=== PATIENT | female | born 1970 | race Hispanic/Latino ===

== ENCOUNTER 2018-03-15 05:47 | Day surgery (SDC) | payer BC ==
[2018-03-14 15:18] VITALS: BMI 39.9
[~2018-03-15 05:47] MED LIST: Cyclopentolate 1% Opth Drop 2 ML BOT FS SCH; EPINEPHrine 0.3 MG in Ophthalmic Irrigation Solution 500 ML FS SCH; Phenylephrine 2.5% Ophth Soln 5 ML BOT FS SCH
[2018-03-15] MEDS ORDERED: Phenylephrine 2.5% Ophth Soln 5 ML BOT ONE (06:01)
[2018-03-15] MEDS ORDERED: Cyclopentolate 1% Opth Drop 2 ML BOT ONE (06:01)
[2018-03-15] MEDS ORDERED: Fentanyl 100 MCG/2 ML VIAL ONE (06:12)
[2018-03-15] MEDS ORDERED: Lidocaine 2% 10 ML INJ ONE (06:12)
[2018-03-15] MEDS ORDERED: Midazolam HCl 2 mg/2 ml Vial ONE (06:12)
[2018-03-15] MEDS ORDERED: PROPOFOL 20 ML ONE (06:12)
--- NOTE | 2018-03-15 09:14 | OP ---
DATE OF PROCEDURE: 03/15/2018 PREOPERATIVE DIAGNOSIS: Retained lens fragments epiretinal membrane, left eye. POSTOPERATIVE DIAGNOSIS: Retained lens fragments epiretinal membrane, left eye. PROCEDURE: Pars plana vitrectomy and membrane peel, left eye. SURGEON: Dr. Mario Alberto Coleman ANESTHESIA: Local with monitored anesthesia care. PROCEDURE IN DETAIL: The patient was identified in the preoperative holding area. Appropriate infor med consent for the planned surgical procedure on the left eye had been obtained. The patient was tr ansported to the operative suite. Appropriate cardiopulmonary monitoring established. Local anesthe sam was obtained using retrobulbar and modified Van Lint lid block using 50:50 mixture of 4% lidocain e and 0.75% bupivacaine. The patient was prepped and draped in the usual sterile manner for ophthalm ic surgery on the left eye. Lid speculum was placed in the left eye. The 25-gauge trocars were plac ed in conjunctiva and sclera supratemporally, inferotemporally, and supranasally. Infusion line was placed inferotemporally. Light pipe and vitreous cutter were inserted into the eye. Core vitrectomy was performed. Retained lens fragments were removed from the eye. Posterior hyaloid face was eleva jing using vacuum suction and peeled into the retinal periphery, 360 laser was placed using endolaser delivery device anterior to the equator. Residual debris was removed from the lens capsule. Lens wa s noted to be stable and centered. Trocars were removed and sclerotomy was sutured closed. Retrobul bar Kenalog and subconjunctival Ancef were placed. Atropine and antibiotic ointment were placed, and the eye was patched and shielded. The patient was taken the postoperative recovery unit in good con dition having suffered no immediate perioperative complications. DISCHARGE INSTRUCTIONS: The patient was instructed to keep patch and shield on, avoid lifting or melly ding, and follow up in the morning with Dr. Coleman.
[2018-03-15] MEDS ORDERED: Lidocaine 1% PF 5 ML VIAL ONE (13:02)
[2018-03-15] MEDS ORDERED: PROPOFOL 200 MG/20 ML VIAL ONE (13:02)
== END 2018-03-15 08:35 | disposition home or self-care (01) ==
LOC: SDC 05:47
PROVIDERS: ATTEND Ophthalmology Retina Specialist
PROC: 08NF3ZZ Release Left Retina, Percutaneous Approach (ICD-10-PCS; principal; 2018-03-15)
PROC: 08T53ZZ Resection of Left Vitreous, Percutaneous Approach (ICD-10-PCS; principal; 2018-03-15)
DX: H59.022 Cataract (lens) fragments in eye following cataract surgery, left eye (principal); Z79.899 Other long term (current) drug therapy; Z79.4 Long term (current) use of insulin
CPT/HCPCS: 36416; J0171; J2250; J2704; J3010

== ENCOUNTER 2018-04-20 02:55 | Emergency (ER) | payer BC ==
[2018-04-20] MEDS ORDERED: Fentanyl 100 MCG/2 ML VIAL ONE (03:26)
[2018-04-20 03:39] LABS: #Basophils 0.1 thou/uL (0.0-0.2); #Eosinphils 0.2 thou/uL (0.0-0.7); #Lymphocytes 3.1 thou/uL (1.20-3.40); #Monocytes 0.8 thou/uL (0.11-0.59); %Basophils 0.7 % (0.0-1.0); %Eosinophils 1.6 % (0.0-10.0); %Lymphocytes 25.3 % (21.0-51.0); %Monocytes 6.8 % (0.0-10.0); %Neutrophils 65.6 % (42.0-75.0); Hemoglobin 12.9 g/dL (12.0-16.0); Mean Corpuscular HGB CONC 34.1 g/dL (32.0-36.0); Mean Corpuscular Hemoglobin 29.7 pg (27.0-31.0); Mean Corpuscular Volume 87.1 fL (78.0-98.0); Mean Platelet Volume 10.3 fL (7.4-10.4); Platelet Count 202 thou/uL (130-400); RBC Distribution Width 12.1 % (11.5-14.5); Red Blood Cell (RBC) Count 4.33 mill/uL (4.20-5.40); White Blood Cell (WBC) Count 12.2 thou/uL (4.8-10.8)
[2018-04-20 03:55] LABS: ALT (SGPT) 19 U/L (8-55); AST (SGOT) 16 U/L (5-34); Albumin 3.5 g/dL (3.5-5.0); Alkaline Phosphatase 60 U/L (40-150); Anion Gap 13 mmol/L (10-20); BUN (Urea Nitrogen) 26 mg/dL (7.0-18.7); Bilirubin, Total 0.3 mg/dL (0.2-1.2); Calc. Creatinine Clearance 0 mL/min (70-130); Calcium 9.4 mg/dL (7.8-10.44); Carbon Dioxide 23 mmol/L (22-29); Chloride 108 mmol/L (98-107); Estimated GFR-MDRD 78; Globulin 3.5 g/dL (2.4-3.5); Glucose 81 mg/dL (70-105); Potassium 3.8 mmol/L (3.5-5.1); Sodium 140 mmol/L (136-145)
[2018-04-20] MEDS ORDERED: diphenhydrAMINE 50 MG/ML VIAL ONE (04:17)
[2018-04-20] MEDS ORDERED: Promethazine HCl 25 MG/ML VIAL ONE (04:17)
[2018-04-20] MEDS ORDERED: Labetalol HCl 100 MG/20 ML VIAL ONE (04:56)
--- NOTE | 2018-04-20 08:26 | CT ---
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 TECHNIQUE: Axial computed tomography images of the head/brain without intravenous contrast. COMPARISON: No relevant prior studies available. FINDINGS: No definite acute skull fracture. Included paranasal sinuses are essentially clear. No acute intracranial hemorrhage or mass effect. Ventricle size is normal for age. No definite acute infarct by CT. IMPRESSION: No acute intracranial bleed or mass effect. Thank you for allowing us to participate in the care of your patient. Dictated and Authenticated by: Nico Franklin MD 04/20/2018 4:54 AM Central Time ([place] & [place]) FINAL REPORT BRAIN CT WITHOUT IV CONTRAST: EMERGENCY AFTER HOURS EXAM TIME: 3:45 a.m. DATE: 04/20/18. FINDINGS: No significant acute intracranial process. No mass or bleed. POS: OFF
--- NOTE | 2018-04-21 13:17 | EKG ---
Test Reason : HEADACHE Blood Pressure : / mmHG Vent. Rate : 078 BPM Atrial Rate : 078 BPM P-R Int : 210 ms QRS Dur : 090 ms QT Int : 372 ms P-R-T Axes : 018 032 016 degrees QTc Int : 424 ms Sinus rhythm with 1st degree A-V block Possible Left atrial enlargement Septal infarct , age undetermined Abnormal ECG Confirmed by MERCEDES CHINCHILLA, BIANKA ([id number]), avid editor SANDIP MANSFIELD ([id number]) on 04/21/2018 1:17:22 PM Referred By: Confirmed By:BIANKA LONG MD
== END 2018-04-20 06:40 | disposition home or self-care (01) ==
LOC: ERS 02:55
DX: G44.209 Tension-type headache, unspecified, not intractable (principal); I10 Essential (primary) hypertension; E78.5 Hyperlipidemia, unspecified; E11.9 Type 2 diabetes mellitus without complications; F17.210 Nicotine dependence, cigarettes, uncomplicated; Z71.6 Tobacco abuse counseling; Z79.899 Other long term (current) drug therapy
CPT/HCPCS: 70450; 80053; 85025; 85652; 86140; 93005; 96361; 96374; 96375; 99406; J1200; J2550; J3010

== ENCOUNTER 2018-06-14 07:10 | Outpatient (CLI) | payer BC, OTHER ==
--- NOTE | 2018-06-14 09:54 | ULT ---
BILATERAL LOWER EXTREMITY VENOUS DOPPLER WITH SPECTRAL ANALYSIS AND COLOR FLOW EVALUATION: Date: 06-14-18 History: Left foot and lower leg edema since March. Occasional right lower extremity swelling. FINDINGS: Grayscale, color flow, doppler evaluation, and spectral analysis of the bilateral lower extremity william ous structures is performed with 2D imaging. Bilateral lower extremity, common femoral, superficial f emoral, popliteal, posterior tibia, most proximal greater saphenous and profunda femoral veins are im aged. There is normal lumen compressibility, flow, and augmentation in the visualized deep venous structure s of the bilateral lower extremities. There is subcutaneous edema seen in the distal left lower extremity. Mildly prominent lymph node is s een in the inguinal region adjacent to the region of the profunda femoral vein which measures 3.1 cm x 1.1 cm. IMPRESSION: 1. No evidence of a DVT involving visualized deep venous structures bilateral lower extremities. 2. Mild subcutaneous edema is seen involving the distal left lower extremity. 3. Nonspecific mildly prominent lymph node left inguinal region. POS: [facility]
== END 2018-06-14 07:11 | disposition home or self-care (01) ==
LOC: ULT 07:10
PROVIDERS: ATTEND Family Medicine
DX: M79.89 Other specified soft tissue disorders (principal); R60.0 Localized edema
CPT/HCPCS: 93970

== ENCOUNTER 2018-08-08 10:31 | Outpatient (CLI) | payer BC | END 2018-08-08 10:32 | disposition home or self-care (01) | LOC: BICMAMMO 10:31 | PROVIDERS: ATTEND Family Medicine | DX: Z12.31 Encounter for screening mammogram for malignant neoplasm of breast (principal); R92.1 Mammographic calcification found on diagnostic imaging of breast; Z98.890 Other specified postprocedural states | CPT/HCPCS: 77063; 77067 ==

== ENCOUNTER 2019-10-14 14:42 | Outpatient (CLI) | payer OTHER ==
--- NOTE | 2019-10-14 15:37 | MMO ---
Bilateral MAMMO Bilat Screen [facility]DI+DALIA. CLINICAL HISTORY: Patient is 49 years old and is seen for screening. The patient has no family history of breast cancer. The patient has no personal history of cancer. The patient has a history of right Excisional Biopsy in 2008 - benign. VIEWS: The views performed were: bilateral craniocaudal with tomosynthesis; bilateral mediolateral oblique with tomosynthesis; and left mediolateral oblique. FILMS COMPARED: The present examination has been compared to prior imaging studies performed at [facility] on 08/28/2015, 06/01/2017 and 08/08/2018. This study has been interpreted with the assistance of computer-aided detection. MAMMOGRAM FINDINGS: There are scattered fibroglandular densities. There are stable benign appearing calcifications seen in both breasts. There are no suspicious masses, suspicious calcifications, or new areas of architectural distortion. IMPRESSION: THERE IS NO MAMMOGRAPHIC EVIDENCE OF MALIGNANCY. A ROUTINE FOLLOW-UP MAMMOGRAM IN 1 YEAR IS RECOMMENDED. THE RESULTS OF THIS EXAM WERE SENT TO THE PATIENT. ACR BI-RADS Category 2 - Benign finding MAMMOGRAPHY NOTE: 1. A negative mammogram report should not delay a biopsy if a dominant of clinically suspicious mass is present. 2. Approximately 10% to 15% of breast cancers are not detected by mammography. 3. Adenosis and dense breasts may obscure an underlying neoplasm. Reported by: JEROME LEE MD Electonically Signed: [id number]
== END 2019-10-14 14:43 | disposition home or self-care (01) ==
LOC: BICMAMMO 14:42
PROVIDERS: ATTEND Family Medicine
DX: Z12.31 Encounter for screening mammogram for malignant neoplasm of breast (principal)
CPT/HCPCS: 77063; 77067

== ENCOUNTER 2020-11-16 08:43 | Outpatient (CLI) | payer BC ==
--- NOTE | 2020-11-16 09:29 | MMO ---
Bilateral MAMMO Bilat Screen DDI+DALIA. CLINICAL HISTORY: Patient is 50 years old and is seen for screening. The patient has no family history of breast cancer. The patient has no personal history of cancer. The patient has a history of right Excisional Biopsy in 2008 - benign. VIEWS: The views performed were: bilateral craniocaudal with tomosynthesis; bilateral mediolateral oblique; bilateral mediolateral oblique with tomosynthesis; and cleavage view. FILMS COMPARED: The present examination has been compared to prior imaging studies performed at [facility] on 08/28/2015, 06/01/2017, 08/08/2018 and 10/14/2019. This study has been interpreted with the assistance of computer-aided detection. MAMMOGRAM FINDINGS: There are scattered fibroglandular densities. Finding 1: There are stable benign appearing calcifications seen in both breasts. Finding 2: There is a stable area of architectural distortion with associated post-surgical scar seen in the right breast. Finding 3: There are multiple fat containing, round masses of varying size with circumscribed margins seen in the outer region of the right breast. Evidence for fat necrosis. There are no suspicious masses, suspicious calcifications, or new areas of architectural distortion. IMPRESSION: THERE IS NO MAMMOGRAPHIC EVIDENCE OF MALIGNANCY. A ROUTINE FOLLOW-UP MAMMOGRAM IN 1 YEAR IS RECOMMENDED. THE RESULTS OF THIS EXAM WERE SENT TO THE PATIENT. ACR BI-RADS Category 2 - Benign finding MAMMOGRAPHY NOTE: 1. A negative mammogram report should not delay a biopsy if a dominant of clinically suspicious mass is present. 2. Approximately 10% to 15% of breast cancers are not detected by mammography. 3. Adenosis and dense breasts may obscure an underlying neoplasm. Reported by: DYLON CANADA MD Electonically Signed: [id number]
== END 2020-11-16 08:44 | disposition home or self-care (01) ==
LOC: BICMAMMO 08:43
PROVIDERS: ATTEND Family Medicine
DX: Z12.31 Encounter for screening mammogram for malignant neoplasm of breast (principal); Z91.89 Other specified personal risk factors, not elsewhere classified
CPT/HCPCS: 77063; 77067

== ENCOUNTER 2020-12-02 14:55 | Outpatient (CLI) | payer BC ==
--- NOTE | 2020-12-02 15:35 | ULT ---
US Venous Doppler Lt Unilat History: Lower extremity pain and edema Comparison: Lower extremity venous Doppler May 2018 Findings: Real-time grayscale, color and spectral analysis of the left lower extremity venous system was performed. The common femoral, femoral, proximal portions greater saphenous and deep femoral veins as well as the popliteal and posterior tibial veins were interrogated. Normal flow, augmentation and compression. At the area of interest posterior calf is superficial soft tissue swelling. Impression: No deep venous thrombosis.
== END 2020-12-02 14:56 | disposition home or self-care (01) ==
LOC: BICULT 14:55
DX: I82.402 Acute embolism and thrombosis of unspecified deep veins of left lower extremity (principal)

== ENCOUNTER 2022-06-07 09:14 | Emergency (ER) | payer BC, SELFPAY ==
[2022-06-07] MEDS ORDERED: Lorazepam (BATCHED) 2 MG/ML SYR ONE (17:11)
== END 2022-06-07 09:40 | disposition left against medical advice (07) ==
LOC: ERS 09:14
DX: Z53.21 Procedure and treatment not carried out due to patient leaving prior to being seen by health care provider (principal)
CPT/HCPCS: 94760; J2060